=== PATIENT | male | born 1950 | race Caucasian/White ===

== ENCOUNTER 2016-08-13 11:00 | Inpatient (IN) | payer MEDICAID ==
[~2016-08-13] VITALS: Ht 185.4 cm; Wt 115.0 kg
--- NOTE | ~2016-08-13 | ECH ---
Transthoracic Echocardiography Report (TTE) Demographics Patient Name JAMEE RM Date of Study 08/14/2016 Patient Number [id number] Visit Number [id number] Date of 1950 Room Number 308 Accession Number [id number] Gender Male Age 65 year(s) Referring Henna Dubose MD Toy Consultant Michelle Pretty [facility] Physician Physician Interpreting Maritza Yañez Ware Dresser Physician MD Supervising Ordering Physician Henna Dubose MD/MLP Nurse Stress Field Worker Conclusions Summary Limited images due to patient on ventilator/position. The estimated left ventricular ejection fraction is 65-70%. The ascending aorta appears mildly dilated. The maximum diameter measures 3.65 cm. Procedure Type of Study TTE procedure:Echo Complete SF. Procedure Date Date: 08/14/2016 Start: 02:24 PM Technical Quality: Fair due to patient on ventilator. Indications:Cardiomegaly and Shortness of breath. Additional Indications:on ventilator, bactermia Appropriate Use Criteria: 9 Height: 73 inches Weight: 286 pounds BSA: 2.51 m Rhythm: Irregular HR: 100 bpm BP: 106/54 mmHg M-Mode/2D Measurements LV Diastolic Dimension: 5.04 cm LV Systolic Dimension: 3.72 cm LV Septum Diastolic: 1 cm LV PW Diastolic: 1.06 cm AO Root Dimension: 3.08 cm Cardiac Output: 5.82 l/min LA Dimension: 4.03 cm Cardiac Index: 2.32 l/min*m RV Diastolic Dimension: 3.43 cm LVOT: 2.2 cm LVOT VTI: 15.31 cm LV Stroke volume: 58.17 ml LV Stroke volume index: 23.18 ml/m Doppler Measurements AV Peak Velocity: 1 m/s MV Peak E-Wave: 1.1 m/s AV Peak Gradient: 4 mmHg AV Mean Gradient: 2.21 mmHg LVOT Peak Velocity: 1.01 m/s AV Area (Continuity):3.71 cm Findings Left Ventricle The left ventricle is normal in size . Diastolic function indeterminate due to patient's arrhythmia. Right Ventricle Right ventricle not well visualized. Left Atrium Normal left atrial size. Right Atrium Right atrium not well visualized. Mitral Valve Normal mitral valve structure and function. Aortic Valve The aortic valve is mildly sclerotic. Tricuspid Valve Normal tricuspid valve structure and function. Pulmonic Valve The pulmonic valve is not well visualized. Pericardial Effusion Small anterior pericardial effusion. Miscellaneous The ascending aorta appears mildly dilated. The maximum diameter measures 3.65 cm. Signature
--- NOTE | ~2016-08-13 | WND ---
ADMIT: 08/13/2016 RM/LOC: 411 [facility] MR#: [id number] [facility]#: [id number] [address] [place], [place] [address] JAMEE [place] [address] Wound Care Clinic SEX: M AGE: 65 : 1950 DATE OF VISIT: 09/02/2016 TIME IN: 1445 hours. TIME OUT: 1510 hours. REASON FOR VISIT: Diagnosis of wounds on toes and buttock wound. HISTORY OF PRESENT ILLNESS: Jamee is a 65-year-old male, who was admitted on August 13, 2016, when he was brought to the emergency room after found lying in his hotel bathroom floor for 3 days in a row. He has been seen previously by Jarod Sellers from Wound Care on August 26, 2016, for foot ulcers and stage III to the right side of his buttock. PAST MEDICAL HISTORY: Difficult to obtain from the patient. There is some suspicion of an underlying psychiatric disorder. PAST SURGICAL HISTORY: He reports not having any surgeries in the past. MEDICATIONS: 1. Benadryl. 2. Depakote. 3. Dynapen. 4. Haldol. 5. Klor-Con. 6. Lanoxin. 7. Lasix. 8. Pepcid. 9. Xarelto. 10.Zoloft. 11.Dulera. 12.DuoNeb. 13.Habitrol. 14.Levophed. ALLERGIES: No known medication allergies. SOCIAL HISTORY: He reports smoking 2 packs of cigarettes a day since he was 20 years old, and he quit at 47 years old. He started drinking at the age of 14, and he reports 16 years of sobriety. He reports that he is . He has a son that is 36 years old and a daughter who is 3 years old. He reports that he is the 2nd to the oldest of 6 children. When questioned about the ulcers to his toes, he states that he has had them for 3 to 4 months and he reports that they are from tightly fitting boots; however, when he presented on 08/13/2016, they appeared to be acute from laying prone on the bathroom floor. REVIEW OF SYSTEMS: He denies any fever or chills. He denies nausea, vomiting, or diarrhea. He denies chest pain, cough, or shortness of breath. ADMIT: 08/13/2016 RM/LOC: 411 [facility] MR#: [id number] [address] [address] JAMEE [place] [address] Wound Care Clinic SEX: M AGE: 65 : 1950 FOCUSED EXAMINATION: Assessment of his buttocks reveals a 0.3 cm circumferential area on the right side of his gluteal cleft about half way down. There is a depth of 0.1 cm. Wound bed is red and dry. His feet have multiple full-thickness wounds on toes 1 through 4. He has calluses on the distal tips of toes 2 through 4 bilaterally. Wound beds are dry red. There is some loose black eschar noted on the hallux bilaterally. On the right lateral ankle, he has a 4 cm in length x 2 cm in width dry, black eschar. This is stable. ASSESSMENT: 1. Healing stage III pressure injury to his right gluteal cleft. 2. Traumatic wounds to toes 1 through 4 bilaterally. PLAN: We will continue with the current treatment, which is the painting the toes with Betadine daily. Also, staff is applying Sensi-Care to his buttock. He is currently on a low air loss mattress overlay. He is denying any complaints of pain. Wound Care will continue to follow with him. I would like to thank Dr. Aguillon for allowing us to participate in his care. Aleyda Ritchie APRN/ arnie JOB #: [id number] CC: Hi Aguillon, Attending Physician Hi Aguillon, Family Physician
--- NOTE | ~2016-08-13 | CO ---
ADMIT: 08/13/2016 RM/LOC: 308 [facility] MR#: [id number] [address] [address] JAMEE [place] [address] Consultation SEX: M AGE: 65 : 1950 DATE OF CONSULTATION: 08/14/2016 ATTENDING PHYSICIAN: Hi Aguillon CONSULTING PHYSICIAN: Jakub Rodriguez MD ADDENDUM: Mr. Rm is a 65-year-old male [facility] patient, seen in surgical consultation for Dr. Aguillon, admitted with respiratory failure and large left pleural effusion versus empyema. I have personally reviewed the radiographic studies, including CT scan. I examined him in his ICU bed. I have reviewed Sergio Lovell's note and I am in agreement with his assessment and plan and documentation. We will tentatively plan for video-assisted thoracoscopic surgery of the left chest with evacuation of effusion and empyema and possible decortication. This will be tentatively scheduled on Friday with Dr. Snow performing the procedure. No family is available for discussion of risks and Jamee is currently intubated and sedated. Jakub Rodriguez MD/ arnie JOB #: [id number] CC: Hi Aguillon, Attending Physician Hi Aguillon, Family Physician
--- NOTE | ~2016-08-13 | ECH ---
Transthoracic Echocardiography Report (TTE) Demographics Patient Name JAMEE RM Date of Study 08/19/2016 Kay Patient Number [id number] Visit Number [id number] Date of 1950 Room Number 308 Accession Number [id number] Gender Male Age 65 year(s) Referring Hi Diazgoner Client Partner Michelle Pretty [facility] Physician Physician Interpreting Glendy Connelly Safety And Health Consultant Physician MD Supervising Ordering Physician Susan Mejia MD, MD/P Nurse Stress Drophammer Operator Conclusions Summary Technically difficult exam to perform due to being ventilator. The estimated left ventricular ejection fraction is 60-65%. The right atrium is mildly dilated. No significant valvular regurgitant abnormalities. Procedure Type of Study TTE procedure:Echo Complete SF. Procedure Date Date: 08/19/2016 Start: 07:28 AM Technical Quality: Fair due to patient on ventilator. Additional Indications:bacteremia Appropriate Use Criteria: 9 Height: 73 inches Weight: 286 pounds BSA: 2.51 m Rhythm: Within normal limits HR: 75 bpm BP: 118/45 mmHg M-Mode/2D Measurements LV Diastolic Dimension: 5.09 cm LV Systolic Dimension: 3.76 cm LV Septum Diastolic: 1.03 cm LV PW Diastolic: 0.89 cm AO Root Dimension: 3.04 cm Cardiac Output: 6.16 l/min LA Dimension: 5 cm Cardiac Index: 2.45 l/min*m RV Diastolic Dimension: 3.37 cm LA volume index: 34 ml/m LVOT: 2.09 cm LVOT VTI: 23.97 cm RV Base: 4.5 cm LV Stroke volume: 82.19 ml RV Mid: 2.8 cm LV Stroke volume index: 32.75 ml/m RV Length: 7.5 cm Doppler Measurements AV Peak Velocity: 1.48 m/s MV Peak E-Wave: 1.2 m/s AV Peak Gradient: 8.76 mmHg MV Peak A-Wave: 0.61 m/s AV Mean Gradient: 5.32 mmHg MV E/A Ratio: 1.98 LVOT Peak Velocity: 1.22 m/s MV P1/2t: 65.7 msec AV Area (Continuity):2.99 cm MV Deceleration Time: 226.5 msec MV Area (PHT): 3.35 cm PV Peak Velocity: 1.23 m/s PV Peak Gradient: 6.07 mmHg RA Area: 20.26 cm Findings Left Ventricle The left ventricle is normal in size . Diastolic assessment reveals normal relaxation. Right Ventricle Normal right ventricle structure and function. Left Atrium Normal left atrial size. Right Atrium The right atrium is mildly dilated. Mitral Valve Normal mitral valve structure and function. No mitral regurgitation by color Doppler. Aortic Valve Normal aortic valve structure and function. There is no aortic regurgitation by color Doppler. Tricuspid Valve Normal tricuspid valve structure and function. Trivial tricuspid regurgitation by color Doppler. Pulmonic Valve Normal pulmonic valve structure and function. Pericardial Effusion No evidence of pericardial effusion. Miscellaneous Visualized portions of the aortic root and ascending aorta appear normal in size. Pleural Effusion No evidence of pleural effusion. Contractility Score LV regional wall motion:(0-Non visualized 1-Normal 2-Hypokinesis 3-Akinesis 4-Dyskinesis 5-Aneurysm) Signature
--- NOTE | ~2016-08-13 | WND ---
ADMIT: 08/13/2016 RM/LOC: 411 [facility] MR#: [id number] [facility]#: [id number] [address] [facility] [address] [place], [place] [address] JAMEE [place] [address] Wound Care Clinic SEX: M AGE: 65 : 1950 DATE OF VISIT: 09/10/2016 TIME IN: 0940 hours. TIME OUT: 0950 hours. REASON FOR VISIT: Evaluation and treatment of skin concerns. This is a request for wound care from Dr. Davis. HISTORY OF PRESENT ILLNESS: This is a 65-year-old male, who has been seen previously by Wound Care. He was admitted on August 13, 2016 when he was brought to the emergency room after being found in his hotel bathroom floor for 3 days in a row. He was seen by Jarod Sellers for wound care on August 26, 2016 for foot ulcers and stage III pressure ulceration to his right buttock. He was also seen by Aleyda Ritchie APRN from Wound Care on 09/02/2016. Wound Care returns today for further evaluation and treatment of his wounds. Current treatment to the crust on his feet is Betadine that is applied daily. He also has foot soaks that were recently ordered by his primary care provider. He also has a diagnosis of healing stage III pressure ulceration to his right buttock. REVIEW OF SYSTEMS: He is examined in his hospital room where he is on a low air loss mattress. He is awake, alert, and oriented x3. He denies any current fever or chills. No nausea or vomiting. No cough, cold, or chest pain. He states he has minimal pain to his feet. PHYSICAL EXAMINATION: Focused exam to his abdomen shows that there are scars from previous injuries, but no open areas noted now. To the right buttock, previous open areas are now healed and closed. There are thin epithelium covered 2 pink areas, one that measures 1.7 x 1 cm and the second 0.4 x 0.4 cm, no drainage, no surrounding erythema or induration. Dry skin noted on the bilateral buttocks. Focused exam to the left lateral nostril shows a crusty lesion with rolled edges that measures 1.5 cm x 6.5 cm, deep red, and records indicate this is suspicious for cancer. Focused exam to the right foot shows on the first toe dorsal surface is a thick crust that measures 4 cm x 5 cm. No drainage noted. No surrounding erythema or induration. On the tip of the right toe is a thin brown crust that measures 0.4 cm x 1.5 cm, and on the right hallux is an area that measures 1.2 cm x 3 cm of thin brown crust. None a these areas have any surrounding erythema induration or any type of drainage. To the medial right foot is a small crust that is 0.8 x 1 cm, light brown in nature, no surrounding erythema or induration. To the second toe dorsal surface, are 3 small crusts; one that measures 0.5 x 0.5 cm., the next is 0.4 x 0.2 cm, the next is 0.3 x 0.2 cm, and on the tip of his toe 0.5 x 0.6 cm. These all have light brown nature, edges attached, no surrounding erythema or induration. To the fourth toe near the nail is a small dark crust that measures 0.3 x 0.6 cm. To the tip the toe 0.3 x 0.3 cm, no surrounding erythema or induration. To the third toe is a small brown area on the tip of the toe that is 0.3 x 0.2 cm. Posterior tibialis is 1+. Dorsalis pedis is 2+. ADMIT: 08/13/2016 RM/LOC: 411 [facility] MR#: [id number] [address] [facility] [address] [place] [id number] JAMEE RM [place] [address] Wound Care Clinic SEX: M AGE: 65 : 1950 To the left foot on the great toe dorsal surface with a thick crust that measures 4 cm x 3 cm. No surrounding erythema or induration. To the second left toe dorsal surface is a thin crust 1.7 x 0.9 cm, light brown in nature. To the tip of the toe, 1 cm x 0.8 cm dark brown. To the third toe tip left foot, 0.5 x 0.6 cm brown crust noted and to the 4th tip 0.4 x 0.5 cm. Posterior tibialis and dorsalis pedis is 1+. None of these wounds have any surrounding erythema or induration noted. ASSESSMENT: 1. Traumatic wounds to toes 1 through 4, bilateral feet. 2. Healed stage III pressure injury to his right gluteus. 3. Lesion to left nostril. TREATMENT PLAN: We will continue with the pressure relief methods of low air loss mattress overlay, chair air cushion, Sensi-Care, and Aloe to the buttocks. Position changes every 2 hours. No socks to his feet. Continue with the soaks and Betadine to the toes per Dr. Aguillon. Outpatient referral for right naris evaluation per Dr. Aguillon. Thank you for this referral, and Wound will continue to follow while he is inpatient. Sejal Chambers APRN/ arnie JOB #: [id number] CC: Hi Aguillon, Attending Physician Hi Aguillon, Family Physician
--- NOTE | 2016-08-14 16:02 | CO ---
ADMIT: 08/13/2016 RM/LOC: 308 [facility] MR#: [id number] ACC#: [id number] [address] [facility] [address] [place], [place] [address] JAMEE JIMENEZ NO [address]ESS [place], [place] [id number] Consultation SEX: M AGE: 65 : 1950 DATE OF CONSULTATION: 08/14/2016 ATTENDING PHYSICIAN: Hi Aguillon CONSULTING PHYSICIAN: Dominick Barreto MD HISTORY OF PRESENT ILLNESS: Mr. Jimenez is a 65-year-old, white male, smoker, with uncertain previous medical history. He is admitted through the Emergency Department with increasing shortness of breath, weakness, and ground level fall. In the Emergency Department, evaluation was undertaken including labs and x-rays. He was noted to have significant left-sided pneumonia. He was started on IV antibiotics with combination of vancomycin and meropenem. He continued to have progression of worsening infiltrate, and near complete opacification of his left chest, with significant hypoxic respiratory failure. He was seen in consultation. At the time he was seen, he was awake, alert, though incoherent in speech. He has probable COPD, and smoking up to two packs of cigarettes a day. ALLERGIES: REPORTED NO KNOWN MEDICAL ALLERGIES. MEDICATIONS: No list of home medications noted. SOCIAL HISTORY: He is , unemployed, apparently living on the street. FAMILY HISTORY: Noncontributory. REVIEW OF SYSTEMS: Not able to be obtained from the patient at this time. PHYSICAL EXAMINATION: VITAL SIGNS: Currently, febrile. Temperature of a 100.3. Blood pressure 104/52, pulse 140. Oxygen saturations 90% on BiPAP. GENERAL: This is an elderly, chronically ill, sickly-appearing white male, in moderate amount of respiratory distress with impending respiratory failure. HEENT: Pupils equal and reactive. Nares patent. Posterior hypopharynx was clear of acute exudates or lesions. He has a number of teeth missing, he has rotting teeth, and number of dental caries noted. NECK: Supple without adenopathy. Trachea midline. CHEST: Reveals central rhonchi. He has markedly diminished to absent breath sounds on the left. Cough is somewhat weak and inefficient. HEART: Tachycardic. Irregular. ABDOMEN: Soft, nondistended, nontender without guarding or rigidity. No masses were palpable. EXTREMITIES: A number of excoriated areas particularly in his feet. He has large blister on his left great toe. Number of what appeared to be ischemic ulcers on his feet as well. He is moving all extremities. No focal neurologic deficit. NEURO: He is awake, confused, conversant, but incomprehensible. IMAGING DATA: Review of his chest x-ray as mentioned above, shows near complete opacification of the left chest. Cultures growing Staph. ADMIT: 08/13/2016 RM/LOC: 308 [facility] MR#: [id number] [address] [address] JAMEE [place] [address] Consultation SEX: M AGE: 65 : 1950 ASSESSMENT: He has acute left lower lobe pneumonia, high risk for opportunistic infection given his overall poor health status. He has been started on vancomycin and meropenem which he will continue with. He has progression of his pneumonia with impending respiratory failure with severe hypoxemia and hypercapnia. Based on his current status, as well as his x-ray, I think intubation, mechanical ventilation, pulmonary toilet to suction out his left lung would be necessary at this point in time. He has acute atrial fibrillation, currently on rate control and anticoagulant therapy with heparin. He has smoking addiction. He is uncertain of other medical problems that need to be elucidated as he recovers from this acute severe sepsis. As mentioned above, we will go ahead with intubation, mechanical ventilation, and suctioning of his left chest. Pending the results of x-ray following intubation, may need CAT scan to rule out empyema or loculated pleural effusion. Dominick Barreto MD/ arnie JOB #: [id number] CC: Hi Aguillon, Attending Physician Hi Aguillon, Family Physician
--- NOTE | 2016-08-19 07:23 | CO ---
ADMIT: 08/13/2016 RM/LOC: 308 [facility] MR#: [id number] [facility]#: [id number] [address] [facility] [address] [place], [place] [address] JAMEE [place] [address] Consultation SEX: M AGE: 65 : 1950 DATE OF CONSULTATION: 08/14/2016 ATTENDING PHYSICIAN: Hi Aguillon CONSULTING PHYSICIAN: Jakub Rodriguez MD REASON FOR CONSULTATION: Left-sided complex loculated pleural effusion. HISTORY OF PRESENT ILLNESS: Jamee is a 65-year-old male [facility] patient, who is currently intubated and residing in the ICU. The bulk of my history was gathered from the chart. Apparently, the patient is a homeless staying at one of the local hotels, when someone noticed him as being minimally responsive. They then called EMS and had him shift to the emergency department. At that time, it was noted for the patient to be delusional, hypotensive, cyanotic. He has now been admitted and intubated. He currently has a heparin drip running for atrial fibrillation and he is being sedated while intubated. PAST MEDICAL HISTORY: Apparently for delusional disorder. PAST SURGICAL HISTORY: No prior surgeries. ALLERGIES: NOT ACCESSIBLE. MEDICATIONS: Inpatient medications documented in chart. FAMILY HISTORY: Inaccessible. SOCIAL HISTORY: Inaccessible. REVIEW OF SYSTEMS: Unobtainable due to patient's condition. PHYSICAL EXAMINATION: GENERAL: The patient is sedated and intubated. HEENT: Head is normocephalic and atraumatic. Pinnae free of deformities. Nose is midline. No tracheal deviation. NECK: Supple. SKIN: Numerous bruising, abrasions, and overall uncleanliness, apparent that the patient has not been taking care of himself. Poor hygiene. Positive for clubbing and cyanosis. Negative for jaundice, edema, or pallor. LUNGS: Mechanical ventilation noted upon auscultation. Rales on left side, right side clear to auscultation. HEART: Distal pulses intact. Regular rate and rhythm. No murmurs noted. ABDOMEN: Soft, nondistended. MUSCULOSKELETAL: Blister noted on left big toe. Passive range of motion intact. DIAGNOSTIC IMAGING: CT of chest revealed left-sided large complex loculated pleural effusion. ADMIT: 08/13/2016 RM/LOC: 308 [facility] MR#: [id number] [address] [address] JAMEE RM [place] [address] Consultation SEX: M AGE: 65 : 1950 ASSESSMENT: Left-sided loculated complex pleural effusion. PLAN: The plan is to have the patient undergo VATS procedure with possible decortication. Hopefully, get this accomplished with Dr. Snow as Dr. Rodriguez's schedule has filled up for the day. He is currently on a heparin drip, so I will stop that at midnight and we will plan to see him tomorrow. We will attempt to obtain consent from one of his family members, but we will still need to proceed with surgery as not doing surgery will not outweigh the risks of any life-threatening complications. Thanks for the consultation of this patient. KIZZY Dueñas / Jakub Rodriguez MD / arnie JOB #: [id number] CC: Hi Aguillon, Attending Physician Hi Aguillon, Family Physician
--- NOTE | 2016-08-31 06:58 | NUR ---
I was in another room around 0415 to 0430. I assessing my patient as well as friedman cares, and giving a medication. After leaving I saw that 411's light was on, and found the WIRE MILL OPERATOR Kirsten in the room. The patient was kneeling on the floor with his arms/elbows on the bed still. I assessed the patient for any injuries. He denied any new injuies, and said his pain was the still there, but the same. We attemped to move the patient to his bed, and had no luck. We then sat the patient on the floor and attempted again sitting him in a chair this time. This worked. I got a set of vitals, did a neuro exam, and stayed with the patient for about 30-45 minutes. His first set of vitals were: heart rate 141, respirations 28, 91% on 3L, 92/46 (57) blood pressure. I got a temperatue with the next set 99.1. Patient was breathing shallow, his heart rate was elevated (previously 106) compared to my last assessment, and he was a slighty diaphoretic when I felt his skin. I checked a blood sugar: 138. I then ordered an EKG for rhythm interpretation since my patient was med/surg status. Patient was known to be in A-fib chronically, but was generally low 100's for heart rate. The EKG showed A-fib. I called Dr. Mejia around 529 with a status update including the patient's heart rate and other vitals, and fall incident. Orders were received, see chart.
--- NOTE | 2016-09-02 12:43 | OR ---
ADMIT: 08/13/2016 RM/LOC: 308 [facility] MR#: [id number] [facility]#: [id number] [address] [facility] [address] [place], [place] [address] JAG JAMEE [place] [address] Operative/Delivery Room Report SEX: M AGE: 65 : 1950 SURGERY DATE: 08/16/2016 SURGEON: Neville Snow MD PREOPERATIVE DIAGNOSIS: Empyema, left chest. POSTOPERATIVE DIAGNOSIS: Empyema, left chest. PROCEDURE PERFORMED: Left-sided thoracoscopy with decortication of left chest empyema. ANESTHESIA: General endotracheal. PROFESSOR OF RELIGIOUS STUDIES: KIZZY Dueñas ESTIMATED BLOOD LOSS: Approximately 200 mL. DESCRIPTION OF PROCEDURE: After appropriate informed consent was obtained, the patient was brought to the operating room. General endotracheal anesthesia was induced. The patient was positioned with his left chest up, held in place with a stoddard bag. All of his extremities were appropriately padded. Left chest was prepped and draped in a sterile fashion. Approximately 6th intercostal space anterior axillary line incision was created, this was carried deep with cautery, and blunt dissection was used to enter into the chest. Thoracoport was placed. He has really no space to work, so, I used a finger to bluntly dissect some space in the chest and ultimately in doing this, I was able to break into the loculated purulent fluid collection. I got tariq pus out. I did collect a couple culturette swabs of this fluid and sent this for culture and sensitivity. I then ultimately suctioned out 1500 mL of tariq pus from the chest. This gave me enough space to work. I was able to introduce the camera. I then was able to get another port more posterior on the chest in between those two ports, started breaking down the loculations using ring forceps, peeling this really thick rind off the lung and the diaphragm. The lung was tightly stuck up to the chest wall. It was difficult to get into the correct plane between the lung and the pleura. In fact, I started getting into the extrapleural plane and peeling some of the pleura off the chest wall but ultimately, I got back ADMIT: 08/13/2016 RM/LOC: 308 [facility] MR#: [id number] [address] [facility] [address] [place], [place] [address] [place] [address] Operative/Delivery Room Report SEX: M AGE: 65 : 1950 the right space and was able to identify the fissure and peel more of the rind out of the fissure and get the lung all freed up and untrapped. This took quite a while with very tedious dissection and very bloody dissection due to the amount of the inflammation he had. I copiously irrigated out the chest with about 5 or 6 L of saline during the procedure irrigating things out. Once I felt that I had the lung adequately freed up and everything was hemostatic, I placed two 36-Romanian chest tubes, one straight and one angled, these were positioned in the chest. The lung was then reinflated. The chest tubes were sewn into place and secured with sterile dressings, and then placed to Pleur-evac suction. The patient was taken directly back to the ICU. KIZZY Dueñas, assisted in this entire procedure. His help was necessary for retraction during this dissection. Neville Snow MD/ arnie JOB #: [id number] CC: Hi Aguillon, Attending Physician Hi Aguillon, Family Physician
--- NOTE | 2016-09-18 12:00 | HP ---
ADMIT: 08/13/2016 RM/LOC: 308 [facility] MR#: [id number] [facility]#: [id number] [address] [facility] [address] [place], [place] [address] JAMEE RM [address] [address] History and Physical SEX: M AGE: 65 : 1950 DATE OF SERVICE: CHIEF COMPLAINT: Probable sepsis. CLINICAL HISTORY: Jamee is a patient who has moved into the [facility] here locally, a local known low rate motel. He was looked in on by the cleaning staff there on the daily basis, and they found him curled up in the bathroom with a blanket lying there. He was there everyday, but was poorly responsive this morning. Apparently, he would not get up, and he gotten weak enough over the last 10 days. He has had someone call 911 and they brought him to the emergency room. I was asked by Dr. Calloway to see him because of low blood pressure, cyanosis, poorly responsive, foot ulcerations, disheveled, unkempt, and his pants were soaked with urine. PAST MEDICAL HISTORY: He cannot give any meaningful history. We suspect there is an underlying psychiatric disorder here. PAST SURGICAL HISTORY: He does state that he has had no operations. REVIEW OF SYSTEMS: He has not had any chest pain throughout any of this. Interestingly enough, the only thing he complains that is chills. No cough or etc. Information is, otherwise, inaccessible to us. PHYSICAL EXAMINATION: GENERAL: Examination showed a very thin individual. He does open his eyes to command. HEAD AND NECK: Otherwise, unremarkable except dental caries. LUNGS: Show very poor breath sounds on the left side. The right is relatively clear. HEART: Irregular with a pulse rate at 130 to 140. Appears to be in atrial fibrillation. There is no peripheral edema. Pulses are weak. EXTREMITIES: He has blistering and mottling of his lower extremities and broken skin, but no advancing cellulitis surprisingly. NEUROLOGICAL: Examination shows no specific focal abnormalities. He cannot answer the questions. He makes poor eye contact. His brief short answers suggest affect disorder if not dementia. He was quite disheveled, and has not obviously bathed for days if not weeks. He can move all four extremities. Blood pressure was 84/60, and attempts of IV and fluid administration are ongoing. ADMIT: 08/13/2016 RM/LOC: 308 [facility] MR#: [id number] [address] [facility] [address] [place] [address] JAMEE [place] [address] History and Physical SEX: M AGE: 65 : 1950 IMPRESSION: 1. Probable pneumonia. 2. Hypotension with probable early sepsis. 3. Suspect renal insufficiency. 4. Foot ulcerations without ischemic changes. 5. schizophrenia probable . TREATMENT: We will start him on the IV fluids. Give him antibiotics quickly. Chest x-ray and laboratory are pending. The EKG does show atrial fibrillation, but no infarct pattern and that is all the information that I have at hand at this time. We will try and have [employer] help us with family contacts, and he may need Psychiatric evaluation. Hi Aguillon MD/ arnie JOB #: [id number] CC: Hi Aguillon, Attending Physician Hi Aguillon, Family Physician
--- NOTE | 2016-09-21 22:39 | CO ---
ADMIT: 08/13/2016 RM/LOC: 411 [facility] MR#: [id number] [facility]#: [id number] [address] [facility] [address] [place], [place] [address] JAGJAMEE RAM[place] [address] Consultation SEX: M AGE: 65 : 1950 DATE OF CONSULTATION: 09/20/2016 ATTENDING PHYSICIAN: Hi Aguillon CONSULTING PHYSICIAN: Sergio Mckenna MD REASON FOR CONSULT: Delirium. HISTORY OF PRESENT ILLNESS: The patient is a 65-year-old male, who presents with pneumonia, sepsis, and respiratory failure. He is a homeless , however, he was found unresponsive in his motel room. Following admission, the patient developed delirium and received as needed haloperidol. He is seen today via [facility]. He is a poor historian and says that he does not have any mental illness and he is not sure why he has to see a psychiatrist. He denies all symptoms and says that he doing well for the most part except that he has not been sleeping very well. Nursing reports indicate that while the patient's symptoms are improved, he continues to have fluctuating episodes of confusion and verbal aggresion Review of the patient's medical record indicates that he has a history of bipolar disorder with prior psychiatric hospitalization. His last medications of note were Depakote and risperidone. The patient, however, reports that he has never been on these medications. MENTAL STATUS EXAMINATION: The patient is fairly groomed. He is cooperative with interview. He made good eye contact. He has a normal psychomotor activity. His speech is normal in rate and volume. He describes his mood as euthymic. His affect is restricted. His thoughts are logical and goal directed. He denies suicidal, homicidal, or violent ideations. He denies hallucinations and no delusions noted at the interview. He is alert and oriented to time, person, and place. His concentration and memory are impaired. His language is intact. His intelligence is average. His insight ADMIT: 08/13/2016 RM/LOC: 411 [facility] MR#: [id number] [address] [address] JAMEE [place] [address] Consultation SEX: M AGE: 65 : 1950 and judgement are limited. DIAGNOSES: 1. Delirium, resolving. 2. Unspecified bipolar disorder. PLAN: Obtain a valproic acid level and adjust dose of Depakote as indicated. Start the patient on risperidone 0.5 mg daily, adjust dose based on tolerance and response. Reconsult Psych as necessary and have the patient follow with the [facility]. Thank you for your consult. Sergio Mckenna MD/ arnie JOB #: [id number] CC: Hi Aguillon, Attending Physician Hi Aguillon, Family Physician
[2016-09-29] MEDS ORDERED: [UNRECOGNIZED DRUG - OTHER] PO (10:40)
[2016-09-29] MEDS ORDERED: LANOXIN DPS0.125 MG PO (10:41)
[2016-09-29] MEDS ORDERED: PEPCID DPS20 MG PO (10:41)
[2016-09-29] MEDS ORDERED: ZOLOFT DPS50 MG PO (10:42)
[2016-09-29] MEDS ORDERED: DULERA 200/58.8 GM IH (10:42)
[2016-09-29] MEDS ORDERED: RISPERDAL0.25 MG PO (10:42)
[2016-09-29] MEDS ORDERED: XARELTO20 MG PO (10:42)
[2016-09-29] MEDS ORDERED: NEOSPORIN-DPS15 GM TP (10:42)
[2016-09-29] MEDS ORDERED: ATIVAN-DPS0.5 MG PO (10:42)
[2016-09-29] MEDS ORDERED: COLACE-DPS100 MG PO (10:43)
[2016-09-29] MEDS ORDERED: MAALOX DPS30 ML PO (10:43)
[2016-09-29] MEDS ORDERED: TYLENOL DPS325 MG PO (10:44)
[2016-09-29] MEDS ORDERED: MILK OF MAGNESI10 ML PO (10:44)
--- NOTE | 2016-10-30 20:23 | ER ---
ADMIT: 08/13/2016 RM/LOC: 411 [facility] MR#: [id number] [address] [facility] [address] [place], [place] [address] JAG JAMEE Villan[place] [address] Emergency Room Report SEX: M AGE: 65 : 1950 DATE: 08/13/2016 See T sheet for complete H and P. ADDENDUM: A 65-year-old male, comes in by EMS from a local hotel where he was found on the floor by cleaning services, too weak to get up. The patient had apparently been on the floor for several days. Cleaning Services knew this, but it seems like he has been deteriorating day by day to the point where he is unable to take care of himself. The patient had no specific complaints to me when he came in, but just states that he did not have any strength, but I suspect he had some underlying psychiatric illness. PAST MEDICAL HISTORY: The patient denies any. MEDICATIONS: None. ALLERGIES: NONE. PAST SURGICAL HISTORY: Surgeries none. SOCIAL HISTORY: Denies smoking, drug, or alcohol use. PHYSICAL EXAMINATION: GENERAL: The patient is alert, no distress. HEENT: He does have no signs of trauma to his head. Pupils are equal, round, reactive to light. LUNGS: The patient is tachycardic. Lungs have coarse breath sounds in the bases and slightly diminished. ABDOMEN: Soft with some left-sided tenderness. He does have some skin breakdown on his left flank and lower back area. SKIN: Cool and mottled with pulses present in all 4 extremities. EKG shows atrial fibrillation with rapid ventricular response, rate of 142. Chest x-ray shows likely pneumonia in the left side of his lung. ADMIT: 08/13/2016 RM/LOC: 411 [facility] MR#: [id number] [address] [facility] [address] [place], [place] [address] JAMEE [place] [address] Emergency Room Report SEX: M AGE: 65 : 1950 EMERGENCY DEPARTMENT COURSE: We did sepsis routine on the patient in the Emergency Department and I contacted Dr. Aguillon, who is patient's city call and he evaluated the patient in the ER. The patient received IV antibiotics in the Emergency Department and will be admitted to the ICU. He did receive normal saline fluid resuscitation while in the ER and meropenem IV. ADMITTING DIAGNOSES: 1. Hypotension. 2. Sepsis. 3. Skin breakdown, bed sore. 4. Pneumonia. 5. Hypothermia. Sam Calloway MD/ sarahl JOB #: [id number] CC: Hi Aguillon MD, Attending Physician Hi Aguillon MD, Family Physician
--- NOTE | 2016-10-31 10:49 | DS ---
ADMIT: 08/13/2016 RM/LOC: 411 [facility] MR#: [id number] [facility]#: [id number] [address] [facility] [address] [place], [place] [address] JAMEE JIMENEZ [place] [address] General Discharge Summary SEX: M AGE: 65 : 1950 ADMISSION DATE: 08/13/2016 DISCHARGE DATE: 09/27/2016 DISMISSAL DIAGNOSES: 1. Staphylococcus empyema, left. 2. Neglected basal-cell carcinoma, naris, left. 3. Sepsis, resolved. 4. Respiratory failure. 5. Incontinence, resolved. 6. Renal insufficiency, resolved. 7. Chronic atrial fibrillation, stable. 8. Sacral decubiti, healed. 9. Pressure necrosis, digits, feet; markedly improved. 10.History of bipolar affective disorder, not apparent currently. 11.Anticoagulation therapy. PROCEDURES: 1. Left-sided thoracoscopy with decortication, left chest. 2. Central venous access. 3. Ventilator therapy. 4. Wound debridement. CLINICAL HISTORY: Mr. Jamee Jimenez was developing pneumonia and laid in the bathroom of his chosen residence, the [facility]. [facility] janitorial staff and other administrative staff were helpful in looking in on him at least once or twice a day and bringing him food. He laid essentially on his left side, unable to get up, fully clothed, and incontinent as he was not able to get to the bathroom either. Subsequently, personnel at [facility], called 911. Had him transported to the hospital where we saw him in the emergency room and he was seen in a disheveled state, unable to give any history with marked pressure necrosis of the feet, sepsis, and extensive pneumonia. He had mild renal insufficiency, which surprisingly was limited compared to his overall poor condition. He had an obvious neglected skin cancer of the left naris. Diagnostic evaluation and appropriate care were targeted toward his pneumonia, which was a sensitive Staphylococcal organism, both in the empyema pleural space and blood cultures. After ventilator therapy, decortication, laparoscopically, and placement of chest tubes, he steadily improved. He was initially poorly cooperative post extubation and chest tube replacement, and refused to get out of bed. Tough love ensued. Subsequently his mental status improved, his agitation and well-formed confabulation resolved. He became cooperative with physical therapy, wound care, respiratory therapy, nursing personnel, and dietetics. At the time of dismissal, his sacral decubiti were resolved. He was off antibiotics for a period of 10 days without recurrence of any pneumonia, had stable scarification of the left pleural space, and markedly improved digits ADMIT: 08/13/2016 RM/LOC: 411 [facility] MR#: [id number] [address] [address] JAMEE [place] [address] General Discharge Summary SEX: M AGE: 65 : 1950 on each feet, which we dutifully debrided on an intermittent basis. He was ambulatory using a cane, only because we instructed him to and was fully ambulatory. He was eating a regular diet. His medicines were stable. He was pleasant, cooperative, and conversant with all. Consultation with Psychiatry was undertaken, and they recommended continuing his Depakote but added low-dose Risperdal at 0.5 mg p.o. b.i.d. We did not see an effect of his Risperdal one way or the other over the last one week of his hospital stay. Again, he remained quite cooperative, pleasant, and had a dry sense of humor that was appreciated by all. DISCHARGE MEDICATIONS: His dismissal medications included; 1. Depakote 250 mg p.o. b.i.d. (therapeutic Depakote level). 2. Lanoxin 0.125 alternating with 0.25 every other day. 3. Pepcid 20 mg p.o. daily. 4. Risperdal 0.5 mg p.o. b.i.d. 5. Xarelto 20 mg daily. 6. Zoloft 50 mg daily. 7. Dulera 200/5 one puff p.o. b.i.d. 8. Neosporin to his feet post shower with dressings for protection, changed on a daily basis. His p.r.n. medications included; 1. Ativan 0.5 to 1 mg p.o. q.6 hours p.r.n. (had not used for two weeks). 2. Colace 100 mg b.i.d. 3. Maalox 30 mL p.r.n. 4. Milk of magnesia p.r.n. 5. Tylenol 325 mg two every 4 hours p.r.n. (not currently using). He had no ongoing pain or other complaints and the nursing facility at [place] was kind enough to assist in his ongoing cares, arrange for MD followup in two weeks and Psychiatric followup on an as needed basis. All pertinent notes and consultations will be forwarded with him including this discharge summary. Hi Aguillon MD/ arnie JOB #: [id number] CC: Hi Aguillon MD, Attending Physician Hi Aguillon MD, Family Physician Jakub Rodriguez MD
== END 2016-09-27 16:40 | DRG 853 ==
LOC: ER 11:00 → 4PCU 11:30 → 3ICU 11:30 → 4PCU 08-29 20:26
PROVIDERS: ADMIT Internal Medicine
PROC: 5A1955Z Respiratory Ventilation, Greater than 96 Consecutive Hours (ICD-10-PCS; principal; 2016-08-14)
PROC: 02HV33Z Insertion of Infusion Device into Superior Vena Cava, Percutaneous Approach (ICD-10-PCS; 2016-08-15)
PROC: 0BDP4ZZ Extraction of Left Pleura, Percutaneous Endoscopic Approach (ICD-10-PCS; 2016-08-16)
PROC: 3E0G76Z Introduction of Nutritional Substance into Upper GI, Via Natural or Artificial Opening (ICD-10-PCS; 2016-08-17)
PROC: 009U3ZX Drainage of Spinal Canal, Percutaneous Approach, Diagnostic (ICD-10-PCS; 2016-08-17)
DX: A41.01 Sepsis due to Methicillin susceptible Staphylococcus aureus (principal); J96.02 Acute respiratory failure with hypercapnia; R65.21 Severe sepsis with septic shock; J86.9 Pyothorax without fistula; G93.40 Encephalopathy, unspecified; L89.313 Pressure ulcer of right buttock, stage 3; M62.82 Rhabdomyolysis; C44.311 Basal cell carcinoma of skin of nose; J15.211 Pneumonia due to Methicillin susceptible Staphylococcus aureus; J96.21 Acute and chronic respiratory failure with hypoxia; E46 Unspecified protein-calorie malnutrition; N39.0 Urinary tract infection, site not specified; J44.0 Chronic obstructive pulmonary disease with (acute) lower respiratory infection; Z23 Encounter for immunization; R32 Unspecified urinary incontinence; N28.9 Disorder of kidney and ureter, unspecified; I73.9 Peripheral vascular disease, unspecified; D64.9 Anemia, unspecified; L97.509 Non-pressure chronic ulcer of other part of unspecified foot with unspecified severity; I48.91 Unspecified atrial fibrillation; F17.210 Nicotine dependence, cigarettes, uncomplicated; F20.9 Schizophrenia, unspecified; F31.9 Bipolar disorder, unspecified; I48.2 Chronic atrial fibrillation; B95.8 Unspecified staphylococcus as the cause of diseases classified elsewhere; B86 Scabies; L97.529 Non-pressure chronic ulcer of other part of left foot with unspecified severity; L97.519 Non-pressure chronic ulcer of other part of right foot with unspecified severity; K59.00 Constipation, unspecified; Z59.0 Homelessness; Z79.01 Long term (current) use of anticoagulants; Z75.1 Person awaiting admission to adequate facility elsewhere